=== PATIENT | female | born 1980 | race Caucasian/White ===

== ENCOUNTER 2017-04-16 09:03 | Emergency (ER) | payer MEDICAID ==
[~2017-04-16] VITALS: Ht 160 cm; Wt 68.0 kg
[2017-04-16 09:53] LABS: BASOPHIL % 0.5 % (0-2); PLATELET COUNT 149 x10^3mcL (130-400); RED CELL DISTRIBUTION WIDTH 12.7 % (11.5-14.5)
[2017-04-16 10:00] LABS: CALCIUM 8.5 mg/dL (8.5-10.1); CARBON DIOXIDE 23.6 mmol/L (21-32); CHLORIDE SERUM 109 mmol/L (98-107); CREATININE SERUM 0.7 mg/dL (0.6-1.0); GFR1 > 60 mL/min; GLUCOSE SERUM 85 mg/dL (74-106); POTASSIUM SERUM 4.2 mmol/L (3.5-5.1); SODIUM SERUM 142 mmol/L (136-145)
[2017-04-16 10:04] LABS: ALBUMIN 3.7 g/dL (3.4-5.0); ALKALINE PHOSPHATASE 55 U/L (46-116); ALT/SGPT 26 U/L (14-59); AMYLASE 61 U/L (25-115); AST/SGOT 16 U/L (15-37); BILIRUBIN TOTAL 0.66 mg/dL (0.20-1.00); LIPASE 130 IU/L (73-393); TOTAL PROTEIN, SERUM 7.4 g/dL (6.4-8.2)
[2017-04-16 12:16] VITALS: BP 109/65
== END 2017-04-16 12:40 | disposition home or self-care (01) ==
LOC: ED 09:03
PROVIDERS: Emergency Medicine
DX: R10.32 Left lower quadrant pain (principal); R11.0 Nausea
CPT/HCPCS: 83880; J2270; J2405; J7030

== ENCOUNTER 2017-07-13 17:13 | Emergency (ER) | payer MEDICAID ==
[~2017-07-13] VITALS: Ht 160 cm; Wt 68.0 kg
[2017-07-13 18:59] VITALS: BP 102/65
[2017-07-13 19:56] LABS: UA SPECIFIC GRAVITY <=1.005 (1.005-1.035); microscopic required? YES; urine erythrocyte TRACE (NEGATIVE)
== END 2017-07-13 19:22 | disposition home or self-care (01) ==
LOC: ED 17:13
PROVIDERS: Specialist
DX: R10.32 Left lower quadrant pain (principal); R31.29 Other microscopic hematuria